=== PATIENT | female | born 1970 | race Caucasian/White ===

== ENCOUNTER 2017-03-26 07:16 | Outpatient (CLI) | payer OTHER | END 2017-03-26 07:21 | disposition home or self-care (01) | LOC: SONOGRAMA 07:16 | DX: E04.1 Nontoxic single thyroid nodule (principal) ==

== ENCOUNTER 2017-06-06 07:23 | Outpatient (CLI) | payer OTHER | END 2017-06-06 07:46 | disposition home or self-care (01) | LOC: NUCLEAR 07:23 | DX: C73 Malignant neoplasm of thyroid gland (principal); E89.0 Postprocedural hypothyroidism | CPT/HCPCS: 79005; A9517 ==

== ENCOUNTER 2017-06-13 09:44 | Outpatient (CLI) | payer OTHER | END 2017-06-13 10:00 | disposition home or self-care (01) | LOC: NUCLEAR 09:44 | DX: C73 Malignant neoplasm of thyroid gland (principal); E89.0 Postprocedural hypothyroidism ==

== ENCOUNTER 2018-11-25 07:15 | Outpatient (CLI) | payer OTHER | END 2018-11-25 07:21 | disposition home or self-care (01) | LOC: SONOGRAMA 07:15 | DX: R22.2 Localized swelling, mass and lump, trunk (principal) ==

== ENCOUNTER 2020-01-05 10:33 | Outpatient (CLI) | payer OTHER | END 2020-01-05 11:00 | disposition home or self-care (01) | LOC: NUCLEAR 10:33 | PROVIDERS: ATTEND Internal Medicine Sports Medicine | DX: C73 Malignant neoplasm of thyroid gland (principal) | CPT/HCPCS: 78018; 78020; A9528 ==